=== PATIENT | female | born 2000 ===

== ENCOUNTER 2022-04-11 02:32 | Emergency (ER) | payer OTHER ==
[~2022-04-11] VITALS: Ht 167.6 cm; Wt 77.3 kg
[2022-04-11 02:33] VITALS: TEMP 98.2
[2022-04-11 10:32] VITALS: BP 120/60; PULSE 119
== END 2022-04-11 10:32 | disposition home or self-care (01) ==
LOC: COL.ER 02:32
PROVIDERS: Emergency Medicine
DX: S09.90XA Unspecified injury of head, initial encounter (principal); S00.93XA Contusion of unspecified part of head, initial encounter; F10.929 Alcohol use, unspecified with intoxication, unspecified; W10.9XXA Fall (on) (from) unspecified stairs and steps, initial encounter
CPT/HCPCS: J2405; L0174